=== PATIENT | male | born 1960 | race Caucasian/White ===

== ENCOUNTER → 2018-03-16 | Outpatient (CLI) | payer MEDICARE, BC ==
--- NOTE | 2018-03-16 09:04 | CT ---
EXAMINATION TYPE: CT chest w con DATE OF EXAM: 03/16/2018 COMPARISON: CT chest March 08, 2017 and older CTs HISTORY: Lung Cancer progress study. History of left lung surgery and completed chemotherapy 2010. CT DLP: 523.6 mGycm. Automated Exposure Control for Dose Reduction was Utilized. TECHNIQUE: CT scan of the thorax is performed following with IV Contrast, patient injected with 100 ml mL of Isovue 300. FINDINGS: LUNGS: Mild to borderline moderate underlying emphysematous change is redemonstrated. There is persis tent elevated left hemidiaphragm and surgical changes left hilar region from partial pneumonectomy. S cattered calcified nodules are granulomas are redemonstrated for reference anterior right middle lobe 7 mm nodule axial image 35 and superior 8mm nodule axial image 32. There is mild linear scarring in the periphery of the left lower lung. There is stable 3 mm subpleural nodule in the lingula axial ariane ge 39. This is unchanged from 2013 and presumed benign. No new suspicious greater than 4 mm noncalcif ied nodule or mass is present. No pleural effusion or pneumothorax is seen bilaterally. MEDIASTINUM: There are no greater than 1 cm hilar or mediastinal lymph nodes. Prominent but subcentim eter lymph nodes throughout the mediastinum remain present, largest right paratracheal region axial i mage 20 is not significantly changed from older studies. No cardiomegaly or pericardial effusion is seen. Coronary artery calcification is redemonstrated which is noted marker for coronary artery dise ase . Ascending aorta measures up to 3.5 cm in diameter axial image 32 not significantly changed from prior. Focal thrombosis of truncated left hilar pulmonary artery axial image 32 is unchanged from se veral prior studies. OTHER: Some nonspecific subcentimeter lesions anteriorly in the liver near axial image 73 are noted p resumed benign, were present back on 2013 study. No new adrenal masses are seen. There is slight scol iotic curvature with moderate multilevel spurring in the visualized spine. There is peripheral enhanc ing roughly 1.7 cm lesion right hepatic lobe near gallbladder fossa favoring hemangioma axial image 8 5 not included in [id number] on few of the older studies. IMPRESSION: No suspicious new nodules or masses identified to suggest neoplastic recurrence
== END | disposition home or self-care (01) ==
LOC: RADCTMAIN 07:44
PROVIDERS: ATTEND Internal Medicine Hematology & Oncology
DX: C34.90 Malignant neoplasm of unspecified part of unspecified bronchus or lung (principal)
CPT/HCPCS: 71260; Q9967

== ENCOUNTER → 2019-03-19 | Outpatient (CLI) | payer MEDICARE, BC ==
--- NOTE | 2019-03-19 11:23 | CTL ---
EXAMINATION TYPE: CT Low Dose Lung DATE OF EXAM ORDERED: 03/19/2019 COMPARISON: 03/16/2018 HISTORY: . Low Dose CT Lung Screening CT DLP: 135.[address] CTDI: 3.7 mGy IV CONTRAST USED: None. SCREENING VISIT: First visit COMPARISON: None. TECHNIQUE: Low dose computed tomography scan was performed through the chest at 1 millimeter thick se ctions and reconstructed images in the coronal plane at [address] DIAGNOSTIC QUALITY: Satisfactory FINDINGS: LUNG NODULES calcified granuloma right upper lobe redemonstrated. Stable 4 mm pulmonary nodule left u pper lobe anteriorly image 160 unchanged from prior study. No additional nodules or masses identified . LUNGS: COPD: Severity: Mild Fibrosis: Severity:None Lymph nodes: None Other findings: None RIGHT PLEURAL SPACE: Effusion: None Calcification: None Thickening: None Pneumothorax: None Chronic elevation left hemidiaphragm stable. LEFT PLEURAL SPACE: Effusion: None Calcification: None Thickening: None Pneumothorax: None HEART: Heart Size: Mildly enlarged Coronary calcification: Mild Pericardial effusion: None OTHER FINDINGS: Upper abdomen: No significant abnormality Bony thorax: Degenerative changes Supraclavicular region: No significant abnormalityOther: No significant abnormalityI IMPRESSION: 1. Stable 4 mm pulmonary nodule left upper lobe is benign in appearance. Follow-up in one year advise d. FOLLOW UP CT CHEST RECOMMENDATION: Follow-up screening in one year CT LUNG RAD: LUNG RAD CATEGORY category 2 benign
== END | disposition home or self-care (01) ==
LOC: RADCTMAIN 07:52
PROVIDERS: ATTEND Internal Medicine Hematology & Oncology
DX: R91.1 Solitary pulmonary nodule (principal); Z87.891 Personal history of nicotine dependence

== ENCOUNTER → 2020-03-24 | Outpatient (CLI) | payer MEDICARE, BC ==
--- NOTE | 2020-03-24 10:24 | CTL ---
EXAMINATION TYPE: CT Low Dose Lung DATE OF EXAM ORDERED: 03/24/2020 HISTORY: 59-year-old male Personal history of tobacco use-current smoker. Lung cancer screening CT DLP: 144.[address] CTDI: 4.1 mGy Automated exposure control for dose reduction was used. SCREENING VISIT: First year after baseline COMPARISON: 03/19/2019 TECHNIQUE: Low dose computed tomography scan was performed through the chest at 1 mm thick sections a nd reconstructed images in the coronal and sagittal plane. CT DIAGNOSTIC QUALITY: Satisfactory FINDINGS: Heart normal size without pericardial effusion. LAD coronary artery calcifications are present. Ectatic ascending aorta at 3.6 cm. Bovine configuration to the aortic arch. Minimal apical scarring c alcifications within the thoracic aorta. Scattered nonenlarged and borderline sized mediastinal lymph nodes, largest measuring 9 mm along the right paratracheal region are unchanged. Some calcified hilar lymph nodes compatible prior granulomat ous disease. 4 mm anterior left midlung pulmonary nodule, axial image 164 is unchanged. Stable scattered calcified granulomas. Mild centrilobular and paraseptal emphysema. Mild to moderate diffuse bronchial wall thickening. Some strandy atelectasis or scarring at the basilar right middle lobe. Asymmetric elevation left hemidiaphragm is unchanged. Visualized upper abdomen shows no gross upper b genevieve. Bones: Moderate degenerative disc disease T7-T8 and T11-T12. IMPRESSION: 1. LungRADS 2, benign. Stable 4 mm left mid lung pulmonary nodule and prior granulomatous disease. 2. COPD with mild emphysema. 3. Continued asymmetric elevation left hemidiaphragm. RECOMMENDATION: 1. Continue annual low-dose lung cancer screening CT. 2. Smoking cessation. 3. Sniff test can further evaluate for possible hemidiaphragmatic paralysis if clinically indicated. CT LUNG RAD AND CT CHEST RECOMMENDATION: Lung-Rad 2 Benign Appearance or Behavior: Continue annual sc reening with LDCT in 12 months.
== END | disposition home or self-care (01) ==
LOC: RADCTMAIN 07:47
PROVIDERS: ATTEND Internal Medicine Hematology & Oncology
DX: Z12.2 Encounter for screening for malignant neoplasm of respiratory organs (principal); Z87.891 Personal history of nicotine dependence

== ENCOUNTER → 2021-06-09 | Outpatient (CLI) | payer MEDICARE, BC ==
--- NOTE | 2021-06-09 14:41 | CT ---
EXAMINATION TYPE: CT chest wo con DATE OF EXAM: 06/09/2021 COMPARISON: 04/03/2021, 03/16/2018 HISTORY: Follow up for lung cancer. CT DLP: 489.3 mGycm. Automated Exposure Control for Dose Reduction was Utilized. TECHNIQUE: CT scan of the thorax is performed without IV contrast. FINDINGS: LUNGS: Emphysematous changes are similar to the prior exam. 1 to 2 mm subpleural nodularity is stable prior exam scattered sub-5 mm nodularity is prior. Calcified nodule anterior segment right upper lob e stable there is persistent elevated left hemidiaphragm. Calcified right perihilar granuloma right m iddle lobe measuring 4 mm. MEDIASTINUM: Lack of IV contrast is noted to limit evaluation for mediastinal and especially hilar ad enopathy. There are no definitive greater than 1 cm hilar or mediastinal lymph nodes. Calcified lymph nodes are seen. Aorta measures a maximal dimension of 3.8 cm. Coronary artery calcification noted. H eart size normal.. OTHER: Hypertrophic and degenerative changes spine. Hypodensities within the liver too small to chad cterize but retrospectively stable and statistically most likely related to cysts. . IMPRESSION: 1. COPD with persistent elevated left hemidiaphragm and volume loss. Multiple sub-5 mm pulmonary nodu les are stable. No significant interval change noted. 2. There are additional calcified nodules compatible with benign granuloma.
== END | disposition home or self-care (01) ==
LOC: RADCTMAIN 14:01
PROVIDERS: ATTEND Internal Medicine Hematology & Oncology
DX: C34.90 Malignant neoplasm of unspecified part of unspecified bronchus or lung (principal); J44.9 Chronic obstructive pulmonary disease, unspecified; J98.6 Disorders of diaphragm; R91.8 Other nonspecific abnormal finding of lung field
CPT/HCPCS: 71250

== ENCOUNTER → 2022-01-13 | Outpatient (CLI) | payer MEDICARE, BC ==
--- NOTE | 2022-01-13 10:37 | CT ---
EXAMINATION TYPE: CT chest wo con DATE OF EXAM: 01/13/2022 COMPARISON: 06/09/2021, 04/03/2021 HISTORY: 61 year-old male history of lung cancer. C34.90, left upper lobe of lung removed. TECHNIQUE: Contiguous axial scanning of the chest without IV contrast. Coronal and sagittal reconstru ctions performed. CT DLP: 532.40 mGycm Automated exposure control for dose reduction was used. FINDINGS: Heart normal size with trace anterior pericardial fluid. Proximal LAD coronary artery calcifications are present. 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 Mild atherosclerotic arch calcifications. Bovine confi guration to the aortic arch. Scattered nonenlarged and borderline-sized mediastinal lymph nodes measuring up to 1.1 cm in the para tracheal region. No increasing thoracic lymphadenopathy identified. Postsurgical change of left upper lobectomy. Calcified left hilar lymph nodes and a few scattered calcified granulomas within the lungs. Backgroun d moderate centrilobular emphysema is redemonstrated. Suspect some chronic tethering of the left bryon diaphragm related to scarring and volume loss in the left side of the chest. No consolidation or pleural effusion. Visualized upper abdomen shows a 1 cm hypodensity right hepatic dome and 1.2 cm hypodensity caudate l obe suggesting small cysts, unchanged from prior. Mild left-sided colonic diverticulosis. Bones: Mild to moderate degenerative disc disease mid to lower thoracic spine. Mild dextroconvex curv ature mid thoracic spine. IMPRESSION: 1. STATUS POST LEFT UPPER LOBECTOMY. BACKGROUND COPD WITH MILD TO MODERATE EMPHYSEMA. NO EVIDENCE FOR RECURRENT OR METASTATIC DISEASE. 2. A FEW NONENLARGED AND BORDERLINE SIZE MEDIASTINAL LYMPH NODES MEASURING UP TO 1.1 CM REMAIN UNCHAN GED. EVIDENCE OF PRIOR GRANULOMATOUS DISEASE. 3. CAD WITH PROXIMAL LAD CORONARY ARTERY CALCIFICATIONS. 4. 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
== END | disposition home or self-care (01) ==
LOC: RADCTMAIN 09:38
PROVIDERS: ATTEND Internal Medicine Hematology & Oncology
DX: C34.90 Malignant neoplasm of unspecified part of unspecified bronchus or lung (principal); J43.9 Emphysema, unspecified; I25.10 Atherosclerotic heart disease of native coronary artery without angina pectoris; Z90.2 Acquired absence of lung [part of]
CPT/HCPCS: 71250

== ENCOUNTER 2022-12-09 08:21 | Day surgery (SDC) | payer BC, MEDICARE ==
[2022-12-07 12:44] VITALS: BMI 30.7
[~2022-12-09 08:21] MED LIST: LACTATED RINGERS 1,000 ML IV SCH
[2022-12-09] MEDS ORDERED: PROPOFOL 10 MG/ML 20 ML VIAL IV ONE (08:49)
--- NOTE | 2022-12-09 08:55 | P.GSHP ---
History of Present Illness H&P Date: 12/09/22 Chief Complaint: Screening colonoscopy This a 62-year-old male presents today for screening colonoscopy. Patient denies a significant GI complaints. Past Medical History Past Medical History: Cancer Additional Past Medical History / Comment(s): Lung CA, arthritis History of Any Multi-Drug Resistant Organisms: None Reported Past Surgical History: Back Surgery Additional Past Surgical History / Comment(s): Left upper lobectomy, COLONOSCOPY, Past Anesthesia/Blood Transfusion Reactions: No Reported Reaction Smoking Status: Current every day smoker - Past Family History Mother Family Medical History: No Reported History Medications and Allergies Home Medications Medication Instructions Recorded Confirmed Type Ibuprofen [Motrin] 800 mg PO Q8H PRN 12/07/22 12/09/22 History Ipratropium-Albuterol Nebulize 1 dose INHALATION BID 12/07/22 12/09/22 History [Duoneb 0.5 mg-3 mg/3 ml Soln] Allergies Allergy/AdvReac Type Severity Reaction Status Date / Time No Known Allergies Allergy Verified 12/09/22 08:31 Surgical - Exam Vital Signs Temp Pulse Resp BP Pulse Ox 97.1 F L 85 18 120/70 97 12/09/22 08:35 12/09/22 08:35 12/09/22 08:35 12/09/22 08:35 12/09/22 08:35 - General well developed, well nourished, no distress - Eyes PERRL - ENT normal pinna - Neck no masses - Respiratory normal expansion - Cardiovascular Rhythm: regular - Abdomen Abdomen: soft, non tender Assessment and Plan Assessment: We'll perform screening colonoscopy.
--- NOTE | 2022-12-09 09:05 | P.OP ---
Date of Procedure: 12/09/22 Preoperative Diagnosis: Screening colonoscopy Postoperative Diagnosis: Diverticulosis Procedure(s) Performed: Colonoscopy Anesthesia: DAMIR Surgeon: Chong Suazo Pathology: none sent Condition: stable Disposition: PACU Description of Procedure: Patient's placed on the endoscopy table in the lateral position. He received IV sedation. Digital rectal exam was performed. This revealed no ebonized. The flexible colonoscope was then placed patient anus and passed throughout the entire colon. The ileocecal valve was visualized. The cecum, ascending and transverse colon appeared normal. In the descending and; was extensive diverticular changes. The scope was then brought back the rectum and this appeared normal. Scope withdrawn for patient.
[2022-12-09 15:58] VITALS: BP 103/76; PULSE 79; RESP 16; TEMP 97.1
== END 2022-12-09 09:45 | disposition home or self-care (01) ==
LOC: ORWHC2ENDO 08:21
PROVIDERS: ATTEND Surgery
DX: Z12.11 Encounter for screening for malignant neoplasm of colon (principal); K57.90 Diverticulosis of intestine, part unspecified, without perforation or abscess without bleeding; J44.9 Chronic obstructive pulmonary disease, unspecified; F17.210 Nicotine dependence, cigarettes, uncomplicated; Z79.1 Long term (current) use of non-steroidal anti-inflammatories (NSAID); Z79.51 Long term (current) use of inhaled steroids; Z85.9 Personal history of malignant neoplasm, unspecified; Z98.890 Other specified postprocedural states
CPT/HCPCS: J2704; G0121

== ENCOUNTER → 2023-02-18 | Outpatient (CLI) | payer MEDICARE ==
--- NOTE | 2023-02-18 12:42 | CT ---
EXAMINATION TYPE: CT chest wo con DATE OF EXAM: 02/18/2023 COMPARISON: 01/13/2022 HISTORY: 62-year-old male C34.90, follow up lung ca TECHNIQUE: Contiguous axial scanning of the chest without IV contrast. Coronal/sagittal reconstructio ns performed. CT DLP: 501.1mGycm. Automatic exposure control utilized for a dose reduction. FINDINGS: Heart normal size without pericardial effusion. Proximal LAD coronary artery calcifications. Aortic root aneurysmal at 4.3 cm, not significantly changed. Mild atherosclerotic arch calcifications with bovine configuration to the aortic arch. Scattered nonenlarged mediastinal lymph nodes. Borderline size 1.1 cm right paratracheal node remains unchanged. Calcified hilar lymph nodes compatible with prior granulomatous disease. No enlarging tho racic adenopathy. Scattered benign calcified granulomas in the lungs. There is moderate to advanced emphysema. Mild dif fuse bronchial wall thickening. Postsurgical change left lobectomy. No new or suspicious pulmonary nodule or mass is identified. No c onsolidation or pleural effusion. Tiny 3 mm inferior lingular pulmonary nodule unchanged. Ongoing marked asymmetric elevation left hemidiaphragm. Small hepatic cysts measuring up to 1.3 cm. Unchanged 2 mm nonobstructive left renal calculus. Bones: Mild degenerative disc disease mid to lower thoracic spine. IMPRESSION: 1. COPD with moderate to advanced emphysema and postsurgical change of previous left lobectomy. 2. Continued marked asymmetric elevation left hemidiaphragm may be due to the volume loss in the left hemithorax. If concern for hemidiaphragmatic paralysis, a fluoroscopic sniff test could be performed . 3. Evidence of prior granulomas disease. No suspicious lymphadenopathy, mass, or nodule to suggest re current or metastatic disease. 4. Similar aneurysm aortic root at 4.3 cm.
== END | disposition home or self-care (01) ==
LOC: RADCTMAIN 09:57
PROVIDERS: ATTEND Internal Medicine Hematology & Oncology
DX: C34.90 Malignant neoplasm of unspecified part of unspecified bronchus or lung (principal); J44.9 Chronic obstructive pulmonary disease, unspecified; J43.9 Emphysema, unspecified; J98.6 Disorders of diaphragm; I71.12 Aneurysm of the aortic arch, ruptured
CPT/HCPCS: 71250

== ENCOUNTER → 2023-04-08 | Outpatient (CLI) | payer MEDICARE ==
--- NOTE | 2023-04-08 22:10 | MR ---
EXAMINATION TYPE: MR lumbar spine wo con DATE OF EXAM: 04/08/2023 COMPARISON: None HISTORY: Low back pain into right side, Hx back surgery 2016 CONTRAST: 0 mL intravenous Gadobutrol. TECHNIQUE: Multiplanar, multisequence images of the lumbar spine were acquired. FINDINGS: L5-S1: No significant disc bulge or disc herniation. No spinal canal stenosis. No foraminal stenosi s. Neural foramen are patent.. L4-L5: No significant disc bulge or disc herniation. No spinal canal stenosis. No foraminal stenosi s. Neural foramen are patent.. L3-L4: No significant disc bulge or disc herniation. No spinal canal stenosis. No foraminal stenosi s. Neural foramen are patent.. L2-L3: No significant disc bulge or disc herniation. No spinal canal stenosis. No foraminal stenosi s. Neural foramen are patent.. L1-L2: No significant disc bulge or disc herniation. No spinal canal stenosis. No foraminal stenosi s. Neural foramen are patent.. T12-L1: No significant disc bulge or disc herniation. No spinal canal stenosis. No foraminal stenos is. Neural foramen are patent.. IMPRESSION: 1.
== END | disposition home or self-care (01) ==
LOC: RADMRIMAIN 14:29
PROVIDERS: ATTEND Orthopaedic Surgery
DX: M54.50 Low back pain, unspecified (principal); Z98.890 Other specified postprocedural states
CPT/HCPCS: 72148

== ENCOUNTER → 2023-05-24 | Outpatient (CLI) | payer MEDICARE ==
[2023-05-24 10:48] VITALS: BP 121/74; PULSE 78; RESP 16; TEMP 97.1
--- NOTE | 2023-05-24 12:06 | P.PAINPG ---
PQRS Measure Charge Sheet Comment: HISTORY OF PRESENT ILLNESS: A 62 yr old male w at side as a referral from [facility] presents today w severe and chronic LBP x 6 mo secondary to DDD, spondylosis and facet arthropathy without myelopathy for evaluation. Pt states pain level is provoked at 8 /10 in intensity, constant, localized in the lumbar spine, predominantly axial, tight in character w occasional RLE numbness. Pain is provoked by bending, standing/ walking for periods > 20 min. Pain is alleviated by PT x 6 wks which ended in Apr 2023, medications (Zanaflex, Ibu), heat, repositioning and rest. Oswestry axial pain score at 17. PMH: OA, Lung CA PSH: Lumbar Laminectomy, MARTIN Lobectomy s/p Lung CA SH: Daily tobacco use, Occasional ETOH use, No illicit drug use. . FH: Non contributory All: See list Meds: See list REVIEW OF ORGAN SYSTEMS: CONSTITUTIONAL: No fevers or chills. No recent weight loss. NEUROLOGICAL: + numbness and tingling along the distal extremities. No seizure disorders or headaches. MUSCULOSKELETAL: + pain PSYCHIATRIC: Denies current depression or suicidal thoughts. Physical Examinations : Constitutional : Cooperative , not in acute distress . Neurologic : Cranial nerve II to XII intact. No focal neurological deficits. Psychiatric : alert & oriented x 3. Matching mood & appropriate affect. Judgment & insight intact. Musculoskeletal : Cervical Spine Motor strength in the deltoid and biceps: Normal right side. Normal Left side Motor strength biceps and the wrist extensors: Normal right side . Normal left side Motor strength in the triceps muscle: Normal right side. Normal left side Deep tendon reflexes: Normal at the biceps. Normal at Brachioradialis. Normal at triceps Vertebral body tenderness to deep palpation over Cervical facet loading test: positive bilaterally Spurling test: positive bilaterally Neck distraction test: positive bilaterally Valdez sign: positive bilaterally Lumbar spine Motor strength lower extremities ,thigh and legs 5/5 Right side , 5/5 Left side Deep tendon reflexes : Normal Knee Jerk. Normal Ankle Jerk Vertebral body tenderness over L5 Crane Test positive BL L5-S1 Lumbar facet Loading Test: positive Right / positive Left Range of motion of the lumbar spine Flexion 30 degrees, extension 10 degrees Straight Leg Raise test: Left/ Right positive at degree Ulysses test: positive right / positive left. Severe tenderness over the Sacroiliac joint on the Right / Left sides Gaenslen test: positive bilaterally Seated flexion test: positive bilaterally. Sacral spine : Severe tenderness over the Sacroiliac joint: right side / left side Range of motion: Flexion of the lumbar spine <60 degrees Range of motion: Extension of the lumbar spine <20 degrees Gaenslen's Test positive Ulysses test: positive right side / left side Thigh Thrust Test Sacral Thrust Test Imaging: MRI noncontrast of the lumbar spine from 04/08/2023 reviewed Assessment/ Plan : Lumbar DDD Recommendation of Caudal ZOILA. May need a series of injections for optimal pain relief. Risks, benefits of procedure discussed and patient verbalized understanding. Admits to anti- coagulant use or medical history of diabetes. Protocol for discontinuation/ continuation of medications jose procedure discussed. Tylenol #3 #15 NR. Use side effects, adverse reactions, safe storage discussed. Pt acknowledged understanding. All questions answered. I have spent greater than 30 minutes on patient care today. Dr Ferrara was available by phone for the evaluation of this patient. The time was used to review the medical records including relevant urine studies and Prescription history (MAPs), review of the available imaging, evaluation and examination of the patient, coordination of care with the medical staff and if applicable referring physicians, as well as creation of the medical record - Pain Location Bilateral Lower Back Non-Pharmacological Interventions: Heat, Physical Therapy, Position/Reposition, Relaxation Technique Pharmacological Interventions: PRN Medication, Topical Medication PQRS Narrative: Smoking Status Current some day smoker Home Medications: Ambulatory Orders Ibuprofen [Motrin] 800 mg PO Q8H PRN 12/07/22 Ipratropium-Albuterol Nebulize [Duoneb 0.5 mg-3 mg/3 ml Soln] 1 dose INHALATION BID 12/07/22 Acetaminophen-Codeine 300-30mg [Tylenol w/codeine #3] 1 tab PO Q4H PRN 3 Days #15 tablet 05/24/23 Controlled Substance Measures - Controlled Substance Measures Is patient prescribed a controlled substance at discharge?: Yes When asked, does pt state using other controlled substances?: No If prescribed controlled substance>3 days was MAPS reviewed?: Prescribed <3 Days
== END ==
LOC: PNWHC3 10:09
PROVIDERS: ATTEND Specialist
DX: M51.17 Intervertebral disc disorders with radiculopathy, lumbosacral region (principal); M47.27 Other spondylosis with radiculopathy, lumbosacral region; F17.200 Nicotine dependence, unspecified, uncomplicated; M19.90 Unspecified osteoarthritis, unspecified site; Z85.118 Personal history of other malignant neoplasm of bronchus and lung
CPT/HCPCS: 99211

== ENCOUNTER 2023-06-07 08:31 | Day surgery (SDC) | payer MEDICARE ==
[2023-06-01 15:56] VITALS: BMI 31.4
[2023-06-07] MEDS: LACTATED RINGERS 1,000 ML IV ONE ×2 (09:40→10:01)
[2023-06-07 10:00] VITALS: RESP 16; TEMP 97.1
[2023-06-07] MEDS ORDERED: ROPIVACAINE 5MG/ML 20ML VIAL ONE (10:08)
[2023-06-07] MEDS ORDERED: IOPAMIDOL M300 15ML VIAL ONE (10:08)
[2023-06-07] MEDS ORDERED: methylPREDNISolone ACETATE 80 MG/ML 1 ML VIAL ONE (10:08)
--- NOTE | 2023-06-07 10:21 | P.PCN ---
Description of Procedure: Preprocedure diagnosis. Post laminectomy syndrome. Lumbar radiculopathy. Postprocedure diagnosis. As above. Procedure done. Injection of radial contrast material into the caudal epidural space. Caudal epidurogram, interpretation of caudal epidurogram, caudal epidural steroid injection under fluoroscopic guidance. Anesthesia. Local infiltration with local anesthetics. In OR, continuous pulse ox, EKG, blood pressure and verbal communication was maintained. Blood loss. None. Indication. Discussed with the patient procedure, alternatives, complications which may including infection bleeding and nerve damage aggravation of pain all of which could be permanent. Patient understands and questions were answered. Procedure note. Antibiotic started Pre-Op. After getting consent patient in OR in prone position. Back prepped with chlorhexidine 3 times and draped in sterile fashions. 10 mL of 1% lidocaine injected subcutaneously. Under AP and crosstable lateral view of the fluoroscope, 20-gauge Tuohy needle was introduced through the sacral hiatus into caudal epidural space. After needle position confirmation by AP and crosstable lateral view, 5 mL of Omnipaque 200 radiocontrast material injected which was noted into the caudal epidural space. No contrast was noted into the intrathecal or intravascular space. After repeat negative aspiration 10 mL of solution injected which consists of 9 mL of preservative-free normal saline mixed with 1 mL of 80 mg Depo-Medrol. Tuohy needle was taken out and bandages applied. Disposition. Patient tolerated the procedure well. No complication. Discharged home in stable condition.
[2023-06-07] MEDS: LACTATED RINGERS 700 ML IV ONE (10:26)
[2023-06-07 10:35] VITALS: PULSE 77
[2023-06-07 11:11] VITALS: BP 123/67
--- NOTE | 2023-06-08 09:18 | FL ---
EXAMINATION TYPE: FL guided pain mgmt statistic Intraoperative/procedural fluoroscopic services were provided. Total fluoroscopy time is 12.4 seconds with a total of 2 submitted images to PACS. Please s ee the operative/procedural note for further details. DAP: [id number] mGym2
== END 2023-06-07 11:05 | disposition home or self-care (01) ==
LOC: ORPAIN 08:31
PROVIDERS: ATTEND Pain Medicine Interventional Pain Medicine
DX: M54.16 Radiculopathy, lumbar region (principal); M96.1 Postlaminectomy syndrome, not elsewhere classified; Z79.1 Long term (current) use of non-steroidal anti-inflammatories (NSAID)
CPT/HCPCS: 62323; J1040; J0690; Q9967; J2795

== ENCOUNTER → 2023-06-23 | Outpatient (CLI) | payer MEDICARE ==
[2023-06-23 13:01] VITALS: BP 122/62; PULSE 89; RESP 15; TEMP 98.5
--- NOTE | 2023-06-23 14:10 | P.PAINPG ---
PQRS Measure Charge Sheet Comment: HISTORY OF PRESENT ILLNESS: A 62 yr old male w at side presents today w severe and chronic LBP x 6 mo secondary to L2-L5 laminectomy w decompression for evaluation s/p Caudal ZIOLA. Pt states she experienced 50 % pain relief x 2 wks s/p procedure. Pt states pain level is provoked at 7 /10 in intensity, constant, localized in the lumbar spine, predominantly axial, tight in character w occasional RLE numbness. Pain is provoked by bending, standing/ walking for periods > 20 min. Pain is alleviated by PT x 6 wks which ended in Apr 2023, medications, heat, repositioning and rest. Oswestry axial pain score at 16. Interventional procedures include Caudal ZOILA (May 2022) Medications include Zanaflex, Ibu. Hx of Cannabis use (2014) w strong cannabis scent (06/23/23) REVIEW OF ORGAN SYSTEMS: CONSTITUTIONAL: No fevers or chills. No recent weight loss. NEUROLOGICAL: + numbness and tingling along the distal extremities. No seizure disorders or headaches. MUSCULOSKELETAL: + pain PSYCHIATRIC: Denies current depression or suicidal thoughts. Physical Examinations : Constitutional : Cooperative , not in acute distress . Neurologic : Cranial nerve II to XII intact. No focal neurological deficits. Psychiatric : alert & oriented x 3. Matching mood & appropriate affect. Judgment & insight intact. Musculoskeletal : Cervical Spine Motor strength in the deltoid and biceps: Normal right side. Normal Left side Motor strength biceps and the wrist extensors: Normal right side . Normal left side Motor strength in the triceps muscle: Normal right side. Normal left side Deep tendon reflexes: Normal at the biceps. Normal at Brachioradialis. Normal at triceps Vertebral body tenderness to deep palpation over Cervical facet loading test: positive bilaterally Spurling test: positive bilaterally Neck distraction test: positive bilaterally Valdez sign: positive bilaterally Lumbar spine Motor strength lower extremities ,thigh and legs 5/5 Right side , 5/5 Left side Deep tendon reflexes : Normal Knee Jerk. Normal Ankle Jerk Vertebral body tenderness over L5 Crane Test positive BL L5-S1 Lumbar facet Loading Test: positive Right / positive Left Range of motion of the lumbar spine Flexion 30 degrees, extension 10 degrees Straight Leg Raise test: Left/ Right positive at degree Ulysses test: positive right / positive left. Severe tenderness over the Sacroiliac joint on the Right / Left sides Gaenslen test: positive bilaterally Seated flexion test: positive bilaterally. Sacral spine : Severe tenderness over the Sacroiliac joint: right side / left side Range of motion: Flexion of the lumbar spine <60 degrees Range of motion: Extension of the lumbar spine <20 degrees Gaenslen's Test positive Ulysses test: positive right side / left side Thigh Thrust Test Sacral Thrust Test Imaging: MRI noncontrast of the lumbar spine from 04/08/2023 reviewed Assessment/ Plan : L2-L5 Laminectomy w Decompression Recommendation of Caudal ZOILA w lysis. May need a series of injections for optimal pain relief. Risks, benefits of procedure discussed and patient verbalized understanding. Admits to anti- coagulant use or medical history of diabetes. Protocol for discontinuation/ continuation of medications jose procedure discussed. All questions answered. I have spent greater than 30 minutes on patient care today. Dr Ferrara was available by phone for the evaluation of this patient. The time was used to review the medical records including relevant urine studies and Prescription history (MAPs), review of the available imaging, evaluation and examination of the patient, coordination of care with the medical staff and if applicable referring physicians, as well as creation of the medical record PQRS Narrative: Smoking Status Current some day smoker Hx Alcohol Use (MH) No Home Medications: Ambulatory Orders Ibuprofen [Motrin] 800 mg PO Q8H PRN 12/07/22 Ipratropium-Albuterol Nebulize [Duoneb 0.5 mg-3 mg/3 ml Soln] 1 dose INHALATION BID 12/07/22 Acetaminophen-Codeine 300-30mg [Tylenol w/codeine #3] 1 tab PO Q4H PRN 3 Days #15 tablet 06/23/23 diazePAM [Valium] 5 mg PO DAILY PRN 1 Days #2 tab 06/23/23 Controlled Substance Measures - Controlled Substance Measures Is patient prescribed a controlled substance at discharge?: Yes When asked, does pt state using other controlled substances?: No If prescribed controlled substance>3 days was MAPS reviewed?: Prescribed <3 Days
== END ==
LOC: PNWHC3 11:46
PROVIDERS: ATTEND Specialist
DX: M48.56XA Collapsed vertebra, not elsewhere classified, lumbar region, initial encounter for fracture (principal); M96.1 Postlaminectomy syndrome, not elsewhere classified; F12.90 Cannabis use, unspecified, uncomplicated; F17.200 Nicotine dependence, unspecified, uncomplicated
CPT/HCPCS: 99211

== ENCOUNTER 2023-07-07 11:51 | Day surgery (SDC) | payer MEDICARE ==
[2023-07-05 15:51] VITALS: BMI 31.4
[2023-07-07 12:59] VITALS: BP 125/75; TEMP 97.6
[2023-07-07] MEDS ORDERED: methylPREDNISolone ACETATE 80 MG/ML 1 ML VIAL ONE ×2 (13:29→13:34)
[2023-07-07] MEDS ORDERED: IOPAMIDOL M200 10 ML VIAL ONE (13:29)
--- NOTE | 2023-07-07 13:39 | P.PCN ---
Date of Procedure: 07/07/23 Procedure(s) Performed: PREOP DIAGNOSIS: 1- Lumbar postlaminectomy syndrome. POSTOP DIAGNOSIS:1- Lumbar postlaminectomy syndrome. PROCEDURE: 1-Caudal epidural steroid injection with epidurolysis and epidurogram under fluoroscopic guidance. (Fluoroscopy images in radiology Department ) 2-caudal epidurogram. ANESTHESIA: Lidocaine 1% 5 mL only EBL: Minimal. PROCEDURE INDICATION: The patient with post-laminectomy syndrome with low back pain and radiculopathy radiating down in both legs, here for a caudal epidural steroid injection with epidurolysis. PROCEDURE DESCRIPTION: The patient was seen and identified in the preoperative area. Risks, benefits, complications, and alternatives were discussed with the patient. The patient agreed to proceed with the procedure and signed the consent, and vital signs were stable. Patient was taken to the OR and time out was completed. The patient was placed in the prone position on procedure table and a pillow was placed under the abdomen to reduce lumbar lordosis. The lumbosacral area was prepped and draped in the usual sterile fashion. Vital signs were closely monitored during the procedure. lateral view and the anterior-posterior plates of the sacrum were identified with infiltration of the area overlying the sacral hiatus with 1% lidocaine .A 17 gauge RK epidural needle was used to advance through the sacral hiatus into the caudal epidural space. Omnipaque 180 dye. 2cc was injected and the position of the needle was verified to be in the midline. A Racz catheter was introduced into the epidural space and was advanced towards the L5-S1 interspace under direct fluoroscopic guidance. Multiple passes were made with the catheter for lysis of epidural adhesions. Depo-Medrol 80 mg ( preservative-free ) with 3ml of preservative free Lidocaine 1% and 5 ml of preservative free normal saline was injected slowly. Additional spread was seen to L4 under fluoroscopy. The needle and the catheter were withdrawn intact. EPIDUROGRAM: Omnipaque 180 mg dye 2 ml was injected with spread of the dye into the caudal epidural space and with spread cutoff at L5 prior to epidurolysis. Post epidurolysis dye 2 ml was injected and spread was seen to L3-4.There was further spread of the solution together with the dye above the L3 COMPLICATIONS: None. DISPOSITION / PLANS: The patient was placed in a supine position and transferred to the recovery area in a stable condition for observation and was discharged from the recovery room after meeting discharge criteria. Home discharge instructions given to the patient by the staff. The patient was reexamined prior to discharge. The patient will schedule a follow up in the clinic in 2-4 weeks.
[2023-07-07 14:21] VITALS: PULSE 81; RESP 18
== END 2023-07-07 14:09 | disposition home or self-care (01) ==
LOC: ORPAIN 11:51
PROVIDERS: ATTEND Specialist
DX: M96.1 Postlaminectomy syndrome, not elsewhere classified (principal)
CPT/HCPCS: 62264; J1040; Q9966

== ENCOUNTER → 2023-07-27 | Outpatient (CLI) | payer MEDICARE ==
[2023-07-27 13:22] VITALS: BP 131/80; PULSE 77; RESP 16; TEMP 97.3
--- NOTE | 2023-07-27 13:39 | P.PAINPG ---
PQRS Measure Charge Sheet Comment: HISTORY OF PRESENT ILLNESS: A 63 yr old male w at side presents today w severe and chronic LBP x 6 mo secondary to L2-L5 laminectomy w decompression, R Sacroiliitis for evaluation s/p Caudal ZOILA w lysis. Pt states she experienced 75 % pain relief x 3 wks s/p procedure. Pt states pain level is provoked at 6 /10 in intensity, constant, localized in the lumbar spine, predominantly axial, tight in character w occasional RLE numbness. Pain is provoked by bending, sitting for periods > 20 min. Pain is alleviated by PT x 6 wks which ended in May 2023, physician guided exercises and stretches every other day since Apr 2023, medications, heat, repositioning and rest. Oswestry axial pain score at 15. Interventional procedures include Caudal ZOILA (May 2022), Caudal ZOILA w Lysis (Jun 2023) Medications include Zanaflex, Ibu. Hx of Cannabis use (2014) w strong cannabis scent (06/23/23) REVIEW OF ORGAN SYSTEMS: CONSTITUTIONAL: No fevers or chills. No recent weight loss. NEUROLOGICAL: + numbness and tingling along the distal extremities. No seizure disorders or headaches. MUSCULOSKELETAL: + pain PSYCHIATRIC: Denies current depression or suicidal thoughts. Physical Examinations : Constitutional : Cooperative , not in acute distress . Neurologic : Cranial nerve II to XII intact. No focal neurological deficits. Psychiatric : alert & oriented x 3. Matching mood & appropriate affect. Judgment & insight intact. Musculoskeletal : Cervical Spine Motor strength in the deltoid and biceps: Normal right side. Normal Left side Motor strength biceps and the wrist extensors: Normal right side . Normal left side Motor strength in the triceps muscle: Normal right side. Normal left side Deep tendon reflexes: Normal at the biceps. Normal at Brachioradialis. Normal at triceps Vertebral body tenderness to deep palpation over Cervical facet loading test: positive bilaterally Spurling test: positive bilaterally Neck distraction test: positive bilaterally Valdez sign: positive bilaterally Lumbar spine Motor strength lower extremities ,thigh and legs 5/5 Right side , 5/5 Left side Deep tendon reflexes : Normal Knee Jerk. Normal Ankle Jerk Vertebral body tenderness Crane Test positive Lumbar facet Loading Test: positive Right / positive Left Range of motion of the lumbar spine Flexion 30 degrees, extension 10 degrees Straight Leg Raise test: Left/ Right positive at degree Ulysses test: positive right / positive left. Severe tenderness over the Sacroiliac joint on the Right / Left sides Gaenslen test: positive bilaterally Seated flexion test: positive bilaterally. Sacral spine : Severe tenderness over the Sacroiliac joint: right side / left side Range of motion: Flexion of the lumbar spine <60 degrees Range of motion: Extension of the lumbar spine <20 degrees Gaenslen's Test positive on R Ulysses test: positive right side / left side Thigh Thrust Test R positive Sacral Thrust Test Imaging: MRI noncontrast of the lumbar spine from 04/08/2023 reviewed Assessment/ Plan : L2-L5 Laminectomy w Decompression, R Sacroiliitis Recommendation of R SI injection #1. May need a series of injections for optimal pain relief. Risks, benefits of procedure discussed and patient verbalized understanding. Admits to anti- coagulant use or medical history of diabetes. Protocol for discontinuation/ continuation of medications jose procedure discussed. All questions answered. I have spent greater than 30 minutes on patient care today. Dr Ferrara was available by phone for the evaluation of this patient. The time was used to review the medical records including relevant urine studies and Prescription history (MAPs), review of the available imaging, evaluation and examination of the patient, coordination of care with the medical staff and if applicable referring physicians, as well as creation of the medical record PQRS Narrative: Smoking Status Current some day smoker Hx Alcohol Use (MH) No Home Medications: Ambulatory Orders Ipratropium-Albuterol Nebulize [Duoneb 0.5 mg-3 mg/3 ml Soln] 1 dose INHALATION BID 12/07/22 Acetaminophen-Codeine 300-30mg [Tylenol w/codeine #3] 1 tab PO Q4H PRN 3 Days #1 5 tablet 06/23/23 diazePAM [Valium] 5 mg PO DAILY PRN 1 Days #2 tab 06/23/23 Ibuprofen [Motrin] 800 mg PO Q8H PRN 30 Days #90 tab 07/27/23 diazePAM [Valium] 5 mg PO DAILY PRN 1 Days #2 tab 07/27/23 Controlled Substance Measures - Controlled Substance Measures Is patient prescribed a controlled substance at discharge?: Yes When asked, does pt state using other controlled substances?: No If prescribed controlled substance>3 days was MAPS reviewed?: Prescribed <3 Days
== END ==
LOC: PNWHC3 12:06
PROVIDERS: ATTEND Specialist
DX: M46.1 Sacroiliitis, not elsewhere classified (principal); M43.26 Fusion of spine, lumbar region; G89.29 Other chronic pain; F17.200 Nicotine dependence, unspecified, uncomplicated
CPT/HCPCS: 99211

== ENCOUNTER → 2024-01-25 | Outpatient (CLI) | payer MEDICARE ==
[2024-01-25 11:07] VITALS: BP 126/80; PULSE 75; RESP 16; TEMP 97.1
--- NOTE | 2024-01-25 14:34 | P.PAINPG ---
Objective - Vital Signs Vital signs: Vital Signs Temp 97.1 F L 01/25/24 11:01 Pulse 75 01/25/24 11:01 Resp 16 01/25/24 11:01 BP 126/80 01/25/24 11:01 Pulse Ox 96 01/25/24 11:01 FiO2 Intake & Output 01/24/24 01/25/24 01/25/24 18:59 06:59 18:59 Weight 97.522 kg PQRS Measure Charge Sheet Mode of Arrival: Ambulatory Comment: HISTORY OF PRESENT ILLNESS: A 63 yr old male w at side presents today w severe and chronic LBP x 6 mo secondary to L2-L5 laminectomy w decompression, BL Sacroiliitis for evaluation. Pt states pain level is provoked at 8 /10 in intensity, constant, localized in the lumbar spine, predominantly axial, tight in character w occasional BLE shooting pain. Pain is provoked by bending, sitting for periods > 20 min. Pain is alleviated by PT x 6 wks which ended in May 2023, physician guided exercises and stretches every other day since Apr 2023, medications, heat, repositioning and rest. Interventional procedures include Caudal ZOILA (May 2022), Caudal ZOILA w Lysis x2 (Jun 2023) Medications include Zanaflex, Ibu. Hx of Cannabis use (2014) w strong cannabis scent (06/23/23) REVIEW OF ORGAN SYSTEMS: CONSTITUTIONAL: No fevers or chills. No recent weight loss. NEUROLOGICAL: + numbness and tingling along the distal extremities. No seizure disorders or headaches. MUSCULOSKELETAL: + pain PSYCHIATRIC: Denies current depression or suicidal thoughts. Physical Examinations : Constitutional : Cooperative , not in acute distress . Neurologic : Cranial nerve II to XII intact. No focal neurological deficits. Psychiatric : alert & oriented x 3. Matching mood & appropriate affect. Judgment & insight intact. Musculoskeletal : Cervical Spine Motor strength in the deltoid and biceps: Normal right side. Normal Left side Motor strength biceps and the wrist extensors: Normal right side . Normal left side Motor strength in the triceps muscle: Normal right side. Normal left side Deep tendon reflexes: Normal at the biceps. Normal at Brachioradialis. Normal at triceps Vertebral body tenderness to deep palpation over Cervical facet loading test: positive bilaterally Spurling test: positive bilaterally Neck distraction test: positive bilaterally Valdez sign: positive bilaterally Lumbar spine Motor strength lower extremities ,thigh and legs 5/5 Right side , 5/5 Left side Deep tendon reflexes : Normal Knee Jerk. Normal Ankle Jerk Vertebral body tenderness L5 Crane Test positive BL L5-S1 Lumbar facet Loading Test: positive Right / positive Left Range of motion of the lumbar spine Flexion 30 degrees, extension 10 degrees Straight Leg Raise test: Left/ Right positive at degree Ulysses test: positive right / positive left. Severe tenderness over the Sacroiliac joint on the Right / Left sides Gaenslen test: positive bilaterally Seated flexion test: positive bilaterally. Sacral spine : Severe tenderness over the Sacroiliac joint: right side / left side Range of motion: Flexion of the lumbar spine <60 degrees Range of motion: Extension of the lumbar spine <20 degrees Gaenslen's Test positive BL Ulysses test: positive right side / left side Thigh Thrust Test BL positive Sacral Thrust Test Imaging: MRI noncontrast of the lumbar spine from 04/08/2023 reviewed Assessment/ Plan : L2-L5 Laminectomy w Decompression, BL Sacroiliitis Recommendation of Caudal ZOILA w Lysis. Risks, benefits of procedure discussed and patient verbalized understanding. Admits to anti- coagulant use or medical history of diabetes. Protocol for discontinuation/ continuation of medications jose procedure discussed. All questions answered. I have spent greater than 30 minutes on patient care today. Dr Ferrara was available by phone for the evaluation of this patient. The time was used to review the medical records including relevant urine studies and Prescription history (MAPs), review of the available imaging, evaluation and examination of the patient, coordination of care with the medical staff and if applicable referring physicians, as well as creation of the medical record - Pain Location Bilateral Lower Back Non-Pharmacological Interventions: Physical Therapy, Position/Reposition Pharmacological Interventions: Epidural, PRN Medication PQRS Narrative: Smoking Status Current some day smoker Blood Pressure 126/80 Pain Intensity [Bilateral 8 Lower Back] Scale Used Numeric (1 - 10) Hx Alcohol Use (MH) No Home Medications: Ambulatory Orders Ipratropium-Albuterol Nebulize [Duoneb 0.5 mg-3 mg/3 ml Soln] 1 dose INHALATION BID 12/07/22 Acetaminophen-Codeine 300-30mg [Tylenol w/codeine #3] 1 tab PO Q4H PRN 3 Days #15 tablet 06/23/23 diazePAM [Valium] 5 mg PO DAILY PRN 1 Days #2 tab 06/23/23 Ibuprofen [Motrin] 800 mg PO Q8H PRN 30 Days #90 tab 07/27/23 diazePAM [Valium] 5 mg PO DAILY PRN 1 Days #2 tab 01/25/24 Controlled Substance Measures - Controlled Substance Measures Is patient prescribed a controlled substance at discharge?: Yes When asked, does pt state using other controlled substances?: No If prescribed controlled substance>3 days was MAPS reviewed?: Prescribed <3 Days
== END ==
LOC: PNWHC3 10:34
PROVIDERS: ATTEND Specialist
CPT/HCPCS: 99211

== ENCOUNTER 2024-02-07 08:09 | Day surgery (SDC) | payer MEDICARE ==
[2024-02-07 08:35] VITALS: TEMP 97.4
[2024-02-07] MEDS ORDERED: LACTATED RINGERS 1,000 ML IV SCH (08:35)
[2024-02-07] MEDS ORDERED: IOPAMIDOL M200 10 ML VIAL ONE (09:12)
[2024-02-07] MEDS ORDERED: methylPREDNISolone ACETATE 80 MG/ML 1 ML VIAL ONE (09:12)
--- NOTE | 2024-02-07 09:25 | P.PCN ---
Date of Procedure: 02/07/24 Procedure(s) Performed: PREOP DIAGNOSIS: 1- Lumbar postlaminectomy syndrome. POSTOP DIAGNOSIS:1- Lumbar postlaminectomy syndrome. PROCEDURE: 1-Caudal epidural steroid injection with epidurolysis and epidurogram under fluoroscopic guidance. (Fluoroscopy images in radiology Department ) 2-caudal epidurogram. ANESTHESIA: Lidocaine 1% 5 mL only EBL: Minimal. PROCEDURE INDICATION: The patient with post-laminectomy syndrome with low back pain and radiculopathy radiating down in both legs, here for a caudal epidural steroid injection with epidurolysis. PROCEDURE DESCRIPTION: The patient was seen and identified in the preoperative area. Risks, benefits, complications, and alternatives were discussed with the patient. The patient agreed to proceed with the procedure and signed the consent, and vital signs were stable. Patient was taken to the OR and time out was completed. The patient was placed in the prone position on procedure table and a pillow was placed under the abdomen to reduce lumbar lordosis. The lumbosacral area was prepped and draped in the usual sterile fashion. Vital signs were closely monitored during the procedure. lateral view and the anterior-posterior plates of the sacrum were identified with infiltration of the area overlying the sacral hiatus with 1% lidocaine .A 17 gauge RK epidural needle was used to advance through the sacral hiatus into the caudal epidural space. Isoview 200 dye. 2cc was injected and the position of the needle was verified to be in the midline. A Racz catheter was introduced into the epidural space and was advanced towards the L5-S1 interspace under direct fluoroscopic guidance. Multiple passes were made with the catheter for lysis of epidural adhesions. Depo-Medrol 80 mg ( preservative-free ) with 3ml of preservative free Lidocaine 1% and 5 ml of preservative free normal saline was injected slowly. Additional spread was seen to L4 under fluoroscopy. The needle and the catheter were withdrawn intact. EPIDUROGRAM: Isoview 200 mg dye 2 ml was injected with spread of the dye into the caudal epidural space and with spread cutoff at L5 prior to epidurolysis. Post epidurolysis dye 2 ml was injected and spread was seen to L3-4.There was further spread of the solution together with the dye above the L3 COMPLICATIONS: None. DISPOSITION / PLANS: The patient was placed in a supine position and transferred to the recovery area in a stable condition for observation and was discharged from the recovery room after meeting discharge criteria. Home discharge instructions given to the patient by the staff. The patient was reexamined prior to discharge. The patient will schedule a follow up in the clinic in 2-4 weeks.
[2024-02-07 09:32] VITALS: RESP 18
[2024-02-07 09:47] VITALS: BP 114/73; PULSE 80
--- NOTE | 2024-02-07 10:02 | FL ---
EXAMINATION TYPE: FL guided pain mgmt statistic DATE OF EXAM: 02/07/2024 9:27 AM COMPARISON: Pre Operative Images if available both CT/MRI or plain film CLINICAL INDICATION: Male, 63 years old with history of M54.16; TECHNIQUE: FL guided pain mgmt statistic, multiple fluoroscopic images provided for procedure. Total fluoroscopy time: 10 seconds Total submitted images to PACS: 3 DAP: [id number] mGym2 Gycm2 uGym2 cGycm2 or equivalent. FINDINGS: Fluoroscopic images during injection for pain management demonstrate multilevel degeneration changes throughout the spine. No evidence for fracture. No acute process identified. IMPRESSION: 1. No evidence for intraoperative complication. 2. Please see the operative/procedural note for further details. [facility], , 02/07/2024 10:00 AM
== END 2024-02-07 09:48 | disposition home or self-care (01) ==
LOC: ORPAIN 08:09
PROVIDERS: ATTEND Specialist
DX: M54.16 Radiculopathy, lumbar region (principal); M96.1 Postlaminectomy syndrome, not elsewhere classified
CPT/HCPCS: 62264; Q9966; J1010

== ENCOUNTER → 2024-02-22 | Outpatient (CLI) | payer MEDICARE ==
--- NOTE | 2024-02-22 10:44 | CT ---
EXAMINATION TYPE: CT chest wo con CT DLP: 712 mGycm, Automated exposure control for dose reduction was used. DATE OF EXAM: 02/22/2024 10:32 AM COMPARISON: Multiple CT chest with most recent 02/18/2023 CLINICAL INDICATION:Male, 63 years old with history of C34.90 LUNG CANCER; [facility], LUNG CA TECHNIQUE: Multiple axial images were obtained through the chest without IV contrast. Lack of IV or o ral contrast limits evaluation of solid and hollow organ viscera. . Coronal and sagittal reformats re viewed. FINDINGS: LUNGS/ PLEURA: No pleural effusion or pneumothorax. Stable 4 mm inferior lingular pulmonary nodule (s eries 4, image 45). Moderate centrilobular emphysematous changes. Postsurgical changes from left lob ectomy. Scattered benign calcified granulomas within the lungs. Chronic elevation of the left hemidia phragm likely related to volume loss from left lobectomy. AIRWAY: Patent and unremarkable.. HEART: Size within normal limits.No pericardial effusion. Proximal LAD coronary artery calcifications . MEDIASTINUM: Stable mildly prominent right paratracheal lymph node measuring 1.2 cm. Additional stabl e prominent nonenlarged mediastinal lymph nodes. Calcified hilar lymph nodes compatible with prior gr anulomatous disease. No new concerning adenopathy. VASCULATURE: Stable aneurysmal root dilatation measuring up to 4.2 cm. Mild atherosclerotic arch stacy cifications with both like configuration to the aortic arch. MUSCULOSKELETAL: No acute osseous abnormalities. Mild degenerative disc disease of the mid to lower t horacic spine. No aggressive osseous lesion. SOFT TISSUES/LYMPH NODES: Unremarkable. LOWER NECK: No significant findings. UPPER ABDOMEN: Nonobstructive 3 mm left renal calculus. Few stable scattered hypodense lesions within the liver which are most consistent with cysts. IMPRESSION: 1. Postsurgical changes from left lobectomy and moderate COPD changes without evidence for recurrence . 2. Sequelae of prior granulomatous disease. 3. Stable aneurysm aortic root dilatation measuring up to 4.2 cm. [facility], , 02/22/2024 10:41 AM
== END | disposition home or self-care (01) ==
LOC: RADCTMAIN 10:15
PROVIDERS: ATTEND Internal Medicine Hematology & Oncology
DX: C34.90 Malignant neoplasm of unspecified part of unspecified bronchus or lung (principal); J44.1 Chronic obstructive pulmonary disease with (acute) exacerbation; M15.9 Polyosteoarthritis, unspecified; I71.9 Aortic aneurysm of unspecified site, without rupture; I70.0 Atherosclerosis of aorta; R91.1 Solitary pulmonary nodule; Z71.3 Dietary counseling and surveillance
CPT/HCPCS: 71250

== ENCOUNTER → 2024-02-27 | Outpatient (CLI) | payer MEDICARE ==
[2024-02-27 12:50] VITALS: BP 114/69; PULSE 84; RESP 16
--- NOTE | 2024-02-27 16:22 | P.PAINPG ---
Objective - Vital Signs Vital signs: Intake & Output 02/26/24 02/27/24 02/27/24 18:59 06:59 18:59 Weight 97.522 kg PQRS Measure Charge Sheet Comment: HISTORY OF PRESENT ILLNESS: A 63 yr old male w at side presents today w severe and chronic LBP x 6 mo secondary to L2-L5 laminectomy w decompression, BL Sacroiliitis for evaluation s/p Caudal ZOILA w Lysis. Pt states he experienced 70% pain relief x 3 wks s/p procedure. Pt states pain level is provoked at 3 /10 in intensity, constant, localized in the lumbar spine, predominantly axial, tight in character w occasional BLE shooting pain. Pain is provoked by bending, sitting for periods > 20 min. Pain is alleviated by PT x 6 wks which ended in May 2023, physician guided exercises and stretches every other day since Apr 2023, medications, heat, repositioning and rest. Interventional procedures include Caudal ZOILA (May 2022, Jan 2024), Caudal ZOILA w Lysis x2 (Jun 2023) Medications include Zanaflex, Ibu. Hx of Cannabis use (2014) w strong cannabis scent (06/23/23) REVIEW OF ORGAN SYSTEMS: CONSTITUTIONAL: No fevers or chills. No recent weight loss. NEUROLOGICAL: + numbness and tingling along the distal extremities. No seizure disorders or headaches. MUSCULOSKELETAL: + pain PSYCHIATRIC: Denies current depression or suicidal thoughts. Physical Examinations : Constitutional : Cooperative , not in acute distress . Neurologic : Cranial nerve II to XII intact. No focal neurological deficits. Psychiatric : alert & oriented x 3. Matching mood & appropriate affect. Judgment & insight intact. Musculoskeletal : Cervical Spine Motor strength in the deltoid and biceps: Normal right side. Normal Left side Motor strength biceps and the wrist extensors: Normal right side . Normal left side Motor strength in the triceps muscle: Normal right side. Normal left side Deep tendon reflexes: Normal at the biceps. Normal at Brachioradialis. Normal at triceps Vertebral body tenderness to deep palpation over Cervical facet loading test: positive bilaterally Spurling test: positive bilaterally Neck distraction test: positive bilaterally Valdez sign: positive bilaterally Lumbar spine Motor strength lower extremities ,thigh and legs 5/5 Right side , 5/5 Left side Deep tendon reflexes : Normal Knee Jerk. Normal Ankle Jerk Vertebral body tenderness L5 Crane Test positive BL L5-S1 Lumbar facet Loading Test: positive Right / positive Left Range of motion of the lumbar spine Flexion 30 degrees, extension 10 degrees Straight Leg Raise test: Left/ Right positive at degree Ulysses test: positive right / positive left. Severe tenderness over the Sacroiliac joint on the Right / Left sides Gaenslen test: positive bilaterally Seated flexion test: positive bilaterally. Sacral spine : Severe tenderness over the Sacroiliac joint: right side / left side Range of motion: Flexion of the lumbar spine <60 degrees Range of motion: Extension of the lumbar spine <20 degrees Gaenslen's Test positive BL Ulysses test: positive right side / left side Thigh Thrust Test BL positive Sacral Thrust Test Imaging: MRI noncontrast of the lumbar spine from 04/08/2023 reviewed Assessment/ Plan : L2-L5 Laminectomy w Decompression, BL Sacroiliitis Will manage residual pain and may RTC on an as needed basis. All questions answered. I have spent greater than 30 minutes on patient care today. Dr Ferrara was available by phone for the evaluation of this patient. The time was used to review the medical records including relevant urine studies and Prescription history (MAPs), review of the available imaging, evaluation and examination of the patient, coordination of care with the medical staff and if applicable referring physicians, as well as creation of the medical record PQRS Narrative: Smoking Status Current some day smoker Hx Alcohol Use (MH) No Home Medications: Ambulatory Orders diazePAM [Valium] 5 mg PO DAILY PRN 1 Days #2 tab 06/23/23 Ibuprofen [Motrin] 800 mg PO Q8H PRN 30 Days #90 tab 07/27/23 Acetaminophen-Codeine 300-30mg [Tylenol w/codeine #3] 1 tab PO Q4H PRN 3 Days #18 tablet 02/01/24 Multivitamins, Thera [Multivitamin (formulary)] 1 tab PO DAILY 02/02/24 Controlled Substance Measures - Controlled Substance Measures Is patient prescribed a controlled substance at discharge?: No
== END ==
LOC: PNWHC3 12:12
PROVIDERS: ATTEND Specialist
DX: M96.1 Postlaminectomy syndrome, not elsewhere classified (principal); M46.1 Sacroiliitis, not elsewhere classified; M47.816 Spondylosis without myelopathy or radiculopathy, lumbar region; F17.210 Nicotine dependence, cigarettes, uncomplicated
CPT/HCPCS: 99211